=== PATIENT | female | born 1985 | race American Indian/Alaskan Native ===

== ENCOUNTER 2017-06-19 07:56 | Emergency (ER) | payer OTHER ==
[2017-06-19 08:05] VITALS: BP 116/50
[2017-06-19] MEDS ORDERED: DECADRON IM ONE (08:59)
[2017-06-19] MEDS ORDERED: PEPCID PO ONE (08:59)
[2017-06-19] MEDS ORDERED: BENADRYL IM ONE (08:59)
--- NOTE | 2017-06-19 09:03 | Emergency Department Report ---
- General Chief complaint: Skin Rash Stated complaint: RASH Time Seen by Provider: 06/19/17 08:59 Source: patient Mode of arrival: Ambulatory Limitations: No Limitations - History of Present Illness Initial comments: 32-year-old -[place] female comes in complaining of a rash over entire body for 3 days. Patient reports that the rash is itchy and burning. She reports that she was out of town in [place] stated a friend's house and had a dog and come back with bumps that are burning and itchy. Patient reports that her Munoz had the same bumps she applied Benadryl cream and hydrocortisone cream and bumps went away for the children. She reports she's tried the same without any resolution. Patient reports no past medical history currently takes no medication and has no known drug allergies. She denies any change in lotions, soaps, clothing detergent, new foods. She denies any shortness of breathing no trouble swallowing no wheezing. MD complaint: rash -: days(s) (3) Location: generalized Severity scale (0 -10): 10 Quality: burning, other (itchy) Improves with: none Context: none Associated symptoms: denies other symptoms - Related Data Previous Rx's Medication Instructions Recorded Last Taken Type Loratadine [Claritin] 10 mg PO DAILY #15 tablet 06/19/17 Unknown Rx predniSONE [Deltasone] 20 mg PO QDAY #5 tab 06/19/17 Unknown Rx Allergies Allergy/AdvReac Type Severity Reaction Status Date / Time mushroom Allergy Hives Verified 06/19/17 08:05 Abscess Boil HPI - HPI Chief Complaint: Skin Rash Stated Complaint: RASH Time Seen by Provider: 06/19/17 08:59 Home Medications: Previous Rx's Medication Instructions Recorded Last Taken Type Loratadine [Claritin] 10 mg PO DAILY #15 tablet 06/19/17 Unknown Rx predniSONE [Deltasone] 20 mg PO QDAY #5 tab 06/19/17 Unknown Rx Allergies/Adverse Reactions: Allergies Allergy/AdvReac Type Severity Reaction Status Date / Time mushroom Allergy Hives Verified 06/19/17 08:05 ED Review of Systems ROS: Stated complaint: RASH Other details as noted in HPI Constitutional: denies: chills, fever Eyes: denies: eye pain, eye discharge, vision change ENT: denies: ear pain, throat pain Respiratory: denies: cough, shortness of breath, wheezing Cardiovascular: denies: chest pain, palpitations Endocrine: no symptoms reported Gastrointestinal: denies: abdominal pain, nausea, diarrhea Genitourinary: denies: urgency, dysuria, discharge Musculoskeletal: denies: back pain, joint swelling, arthralgia Skin: rash (all over). denies: lesions Neurological: denies: headache, weakness, paresthesias Psychiatric: denies: anxiety, depression Hematological/Lymphatic: denies: easy bleeding, easy bruising ED Past Medical Hx - Past Medical History Previous Medical History?: Yes Additional medical history: childbirth by - Surgical History Past Surgical History?: Yes Additional Surgical History: x 2 - Social History Smoking Status: Never Smoker Substance Use Type: Alcohol - Medications Home Medications: Home Medications Medication Instructions Recorded Confirmed Last Taken Type Loratadine [Claritin] 10 mg PO DAILY #15 tablet 06/19/17 Unknown Rx predniSONE [Deltasone] 20 mg PO QDAY #5 tab 06/19/17 Unknown Rx ED Physical Exam - General Limitations: No Limitations - Expanded Skin Exam Expanded Distribution of rash: face, neck, chest, RUE, LUE, RLE, LLE Description of rash: Present: size (dime) ED Course Vital Signs 06/19/17 08:01 Temperature 97.3 F L Pulse Rate 73 Respiratory 18 Rate Blood Pressure 116/50 O2 Sat by Pulse 99 Oximetry - Reevaluation(s) Reevaluation #1: 06/19/17 10:34 Patient reports that her rash is improving not gone all the way but feels much better. ED Medical Decision Making - Medical Decision Making Patient's been evaluated with his provider fast track. Discussed the patient I will give her steroid injection Benadryl and Pepcid to see if we can work with getting the rash under control. Patient verbalized understanding. Discussed the patient placed on prednisone for a few days. As well as Claritin if symptoms persist or gets worse she should follow up with her primary care provider. Critical care attestation.: If time is entered above; I have spent that time in minutes in the direct care of this critically ill patient, excluding procedure time. ED Disposition Clinical Impression: Urticaria Allergic reaction Qualifiers: Encounter type: initial encounter Qualified Code(s): T78.40XA - Allergy, unspecified, initial encounter Disposition: DC-01 TO HOME OR SELFCARE Is pt being admited?: No Does the pt Need Aspirin: No Condition: Stable Instructions: Urticaria (ED) Additional Instructions: Please take medication as prescribed. If symptoms persist or gets worse please follow-up with the primary care provider. Prescriptions: Loratadine [Claritin] 10 mg PO DAILY #15 tablet predniSONE [Deltasone] 20 mg PO QDAY #5 tab Referrals: PRIMARY CARE, [Primary Care Provider] - 3-5 Days Forms: Work/School Release Form(ED), Accompanied Note
== END 2017-06-19 11:46 | disposition home or self-care (01) ==
LOC: ED 07:56
DX: T78.40XA Allergy, unspecified, initial encounter (principal); L50.9 Urticaria, unspecified; Z91.018 Allergy to other foods; X58.XXXA Exposure to other specified factors, initial encounter; Y93.89 Activity, other specified; Y99.8 Other external cause status; Y92.89 Other specified places as the place of occurrence of the external cause
CPT/HCPCS: 96372; 99282; J1100; J1200